=== PATIENT | female | born 1970 | race Caucasian/White ===

== ENCOUNTER 2017-11-22 17:47 | Outpatient (CLI) | payer BC ==
[~2017-11-22] VITALS: Ht 165.1 cm; Wt 77.3 kg
[~2017-11-22 17:47] MED LIST: CATAPRES0.3 MG PO; DEMEROL50 MG PO; DESERYL100 MG PO; HYDROCODONE-APA1 TAB PO; LASIX20 MG PO; MACRODANTIN100 MG PO; NEXIUM20 MG PO
[2017-11-22] MEDS ORDERED: AMBIEN10 MG PO (19:23)
[2017-11-22] MEDS ORDERED: ULTRAM50 MG PO (19:24)
[2017-11-22 19:25] VITALS: BP 148/76; BMI 28.3
[2017-11-22] MEDS ORDERED: LISINOPRIL PO (19:33)
[2017-11-22 21:22] VITALS: BP 132/67; Ht 165.1 cm; Wt 77.3 kg
== END 2017-11-23 03:15 | disposition home or self-care (01) ==
LOC: D.OPS 17:47 → D.MS 19:46 → D.OPS 11-23 03:15
DX: D64.9 Anemia, unspecified (principal)

== ENCOUNTER → 2018-04-23 12:28 | Outpatient (CLI) | payer BC ==
[2017-11-22 21:22] VITALS: BMI 28.3
[~2018-04-23 12:28] MED LIST changes: +AMBIEN10 MG PO; +LISINOPRIL PO; +ULTRAM50 MG PO
== END | disposition home or self-care (01) ==
LOC: D.MRI 12:28
DX: G45.9 Transient cerebral ischemic attack, unspecified (principal)

== ENCOUNTER 2020-09-02 15:02 | Emergency (ER) | payer BC ==
[2017-11-22 21:22] VITALS: Ht 165.1 cm; Wt 81.8 kg
[~2020-09-02] VITALS: Ht 165.1 cm; Wt 81.8 kg
[2020-09-02] MEDS ORDERED: DICLOFENAC SODI50 MG PO (15:56)
[2020-09-02 17:05] VITALS: BP 140/86
== END 2020-09-02 17:06 | disposition home or self-care (01) ==
LOC: D.ER 15:02
DX: S70.12XA Contusion of left thigh, initial encounter (principal); I10 Essential (primary) hypertension; W20.8XXA Other cause of strike by thrown, projected or falling object, initial encounter; Y93.9 Activity, unspecified; Y92.9 Unspecified place or not applicable